=== PATIENT | female | born 1985 | race African-American/Black ===

== ENCOUNTER 2017-07-12 14:11 | Emergency (ER) | payer MEDICAID ==
[~2017-07-12] VITALS: Ht 167.6 cm; Wt 60.0 kg
[2017-07-12] MEDS ORDERED: IBUPROFEN 400MG TABLET PO ONE (14:45)
[2017-07-12 15:13] VITALS: BP 97/64
== END 2017-07-12 17:05 | disposition home or self-care (01) ==
LOC: ER 14:11
DX: S16.1XXA Strain of muscle, fascia and tendon at neck level, initial encounter (principal); S20.212A Contusion of left front wall of thorax, initial encounter; V43.62XA Car passenger injured in collision with other type car in traffic accident, initial encounter; Y93.89 Activity, other specified; Y92.89 Other specified places as the place of occurrence of the external cause; Y99.8 Other external cause status
CPT/HCPCS: 71010; 81025; 99283; Z7610